=== PATIENT | male | born 1965 ===

== ENCOUNTER 2021-12-08 21:25 | Emergency (ER) | payer SELFPAY ==
[~2021-12-08] VITALS: Ht 188 cm; Wt 125.0 kg
[2021-12-08 21:55] VITALS: BP 143/94
[2021-12-08] MEDS ORDERED: ALBU6.7H9 INH (22:12)
[2021-12-08] MEDS ORDERED: BENZ-38 PO (22:12)
[2021-12-08] MEDS ORDERED: PRED20TA PO (22:12)
[2021-12-08] MEDS ORDERED: AMOX-422 PO (22:47)
== END 2021-12-08 23:05 | disposition home or self-care (01) ==
LOC: ER 21:26
DX: J06.9 Acute upper respiratory infection, unspecified (principal); Z20.822 Contact with and (suspected) exposure to COVID-19; R43.8 Other disturbances of smell and taste; R51.9 Headache, unspecified; R53.83 Other fatigue; R06.02 Shortness of breath; R05.9 Cough, unspecified; R50.9 Fever, unspecified; Z79.2 Long term (current) use of antibiotics; Z79.899 Other long term (current) drug therapy
CPT/HCPCS: 71045; 93005; 99283